=== PATIENT | female | born 1955 | race Caucasian/White ===

== ENCOUNTER 2016-04-26 12:50 | Emergency (ER) | payer BC ==
[2016-04-26 13:17] VITALS: BP 112/62
--- NOTE | 2016-04-26 13:44 | UC ---
Respiratory Complaint HPI - HPI Summary HPI Summary: PT HAS HAD MILD ST AND MALAISE FOR SEVERAL WEEKS. OVER PAST 5 DAYS HAS DEVELOPED WORSENING COUGH, CHEST CONGESTION, CHILLS, FATIGUE AND BODY ACHES. NO FEVER. DID GET A FLU SHOT. - History of Current Complaint Chief Complaint: UCRespiratory Stated Complaint: CHEST CONGEST, COUGH Time Seen by Provider: 04/26/16 13:33 Hx Obtained From: Patient Onset/Duration: Gradual Onset, Lasting Weeks, Still Present Timing: Constant Severity Initially: Moderate Severity Currently: Moderate Pain Intensity: 0 Pain Scale Used: 0-10 Numeric Character: Cough: Productive Aggravating Factors: Nothing Alleviating Factors: Nothing Associated Signs And Symptoms: Positive: Wheezing, URI, Nasal Congestion, Hoarseness. Negative: Dyspnea, Fever, Chills, Pleuritic Chest Pain, Hemoptysis , Dizziness, Calf Pain, Calf Swelling, Edema, Sinus Discomfort - Allergies/Home Medications Allergies/Adverse Reactions: Allergies Allergy/AdvReac Type Severity Reaction Status Date / Time Oxycodone [From Percocet] Allergy Hives Verified 01/27/16 14:51 Home Medications: Home Medications Escitalopram Oxalate [Lexapro] 20 mg PO DAILY 04/26/16 [History Confirmed ] Naproxen TAB* [Naprosyn TAB*] 500 mg PO Q8H PRN 04/26/16 [History Confirmed ] Triamterene/HCTZ 37.5-25 MG* [Dyazide CAP*] 04/26/16 [History] guaiFENesin ER TAB [Mucinex*] 1 tab PO BID PRN 04/26/16 [History Confirmed 04/26] PMH/Surg Hx/FS Hx/Imm Hx - Additional Past Medical History Additional PMH: MENIERES Endocrine History Of: Denies: Diabetes, Thyroid Disease Cardiovascular History Of: Denies: Cardiac Disorders, Hypertension Respiratory History Of: Denies: COPD, Asthma GI/ History Of: Denies: Ulcer Psychological History Of: Reports: Depression Cancer History Of: Denies: Breast Cancer - Surgical History Surgical History: None Surgery Procedure, Year, and Place: tubal reversal surgery - Family History Known Family History: Positive: Hypertension - Social History Alcohol Use: Rare Substance Use Type: None Smoking Status (MU): Never Smoked Tobacco Have You Smoked in the Last Year: No - Immunization History Hx Tetanus, Diphtheria Vaccination: Yes Vaccination Up to Date: Yes Review of Systems Constitutional: Fatigue ENT: Sore Throat, Ear Ache, Nasal Discharge Respiratory: Cough Cardiovascular: Negative Gastrointestinal: Negative Musculoskeletal: Myalgia All Other Systems Reviewed And Are Negative: Yes Physical Exam Triage Information Reviewed: Yes Appearance: Well-Appearing, No Pain Distress, Well-Nourished Vital Signs: Initial Vital Signs Temp 99.4 F 04/26/16 13:13 Pulse 68 04/26/16 13:13 Resp 18 04/26/16 13:13 BP 112/62 04/26/16 13:13 Pulse Ox 97 04/26/16 13:13 Vital Signs Reviewed: Yes Eyes: Positive: Conjunctiva Clear ENT: Positive: Hearing grossly normal, Pharynx normal, TMs normal Neck: Positive: Supple, Nontender, Enlarged Nodes @ - MILD SPFL CERVICAL LAD Respiratory Exam: Normal Cardiovascular Exam: Normal Abdomen Description: Positive: Soft Musculoskeletal: Positive: No Edema Neurological: Positive: Alert Psychological: Positive: Age Appropriate Behavior Skin: Negative: rashes UC Diagnostic Evaluation - Laboratory O2 Sat by Pulse Oximetry: 97 Respiratory Course/Dx - Differential Dx/Diagnosis Provider Diagnoses: ACUTE BRONCHITIS Discharge - Discharge Plan Condition: Stable Disposition: HOME Prescriptions: Azithromycin [Azithromycin 500 MG TAB] 500 mg PO DAILY #5 tab Patient Education Materials: Acute Bronchitis (ED) Forms: *Work Release Referrals: Brant Meyer MD [Primary Care Provider] - If Needed Additional Instructions: YOUR SYMPTOMS ARE LIKELY VIRAL IN ETIOLOGY AND SHOULD IMPROVE WITH TIME. IF YOU ARE NOT IMPROVING OVER THE NEXT SEVERAL DAYS GO AHEAD AND FILL RX FOR ANTIBIOTIC TO COVER FOR POSSIBLE BACTERIAL COMPONENT. REST, HYDRATE, OTC MEDS NEEDED FOR DISCOMFORT.
== END 2016-04-26 13:59 | disposition home or self-care (01) ==
LOC: UCEAST 12:50
DX: J20.9 Acute bronchitis, unspecified (principal); Z88.5 Allergy status to narcotic agent
CPT/HCPCS: 99212; G0463

== ENCOUNTER 2016-07-30 14:39 | Emergency (ER) | payer BC ==
[2016-07-30 15:10] VITALS: BP 121/63
--- NOTE | 2016-07-30 15:54 | RAD ---
INDICATION: Right rib pain COMPARISON: Rib series January 03, 2009 TECHNIQUE: Multiple views of the ribs were obtained. FINDINGS: Bones: There is no evidence of acute rib fracture. LUNGS: The lungs are clear. There is no pneumothorax. Pleural spaces: There is no evidence of hemothorax. Other: None IMPRESSION: NO ACUTE RIB FRACTURE.
[2016-07-30] MEDS ORDERED: Ketorolac INJ* 60 MG/2 ML VIAL IM ONE (16:04)
--- NOTE | 2016-07-30 16:17 | ED ---
Upper Extremity Pain - HPI Summary HPI Summary: 61F presents with right sided rib pain. She was mowing the lawn when the bar on the back hit a tree branch and it broke and hit her on the left side and pinned to her the seat on her right side. She states that her right ribs hurt immediately. She states it hurts to take a deep breath but she is not short of breath. She denies any neck or back. She has not taken anything for her pain and her pain is 10/10. It hurts worst when she doesn't sit up straight. - History of Current Complaint Chief Complaint: EDChestWallPain Stated Complaint: RT SIDE RIB PAIN/HIT W/FALLING TREE LIMB Time Seen by Provider: 07/30/16 15:23 - Allergies/Home Medications Allergies/Adverse Reactions: Allergies Allergy/AdvReac Type Severity Reaction Status Date / Time Oxycodone [From Percocet] Allergy Hives Verified 01/27/16 14:51 PMH/Surg Hx/FS Hx/Imm Hx Endocrine/Hematology History: Denies: Hx Diabetes, Hx Thyroid Disease Cardiovascular History: Denies: Hx Hypertension Respiratory History: Denies: Hx Asthma, Hx Chronic Obstructive Pulmonary Disease (COPD) GI History: Denies: Hx Ulcer Psychiatric History: Reports: Hx Depression - Cancer History Hx Chemotherapy: No Hx Radiation Therapy: No - Surgical History Surgery Procedure, Year, and Place: tubal reversal surgery Infectious Disease History: No Infectious Disease History: Denies: Hx Hepatitis, Hx Human Immunodeficiency Virus (HIV), Traveled Outside the [place] in Last 30 Days - Family History Known Family History: Positive: Unknown, Hypertension - Social History Alcohol Use: Rare Substance Use Type: Reports: None Smoking Status (MU): Never Smoked Tobacco Have You Smoked in the Last Year: No Review of Systems Negative: Fever Positive: Chest Pain - right side wall pain Negative: Shortness Of Breath, Cough All Other Systems Reviewed And Are Negative: Yes Physical Exam Triage Information Reviewed: Yes Vital Signs On Initial Exam: Initial Vitals Temp Pulse Resp BP Pulse Ox 97.7 F 54 16 121/63 100 07/30/16 15:04 07/30/16 15:04 07/30/16 15:04 07/30/16 15:04 07/30/16 15:04 Vital Signs Reviewed: Yes Appearance: Positive: Pain Distress Skin: Positive: Warm, Dry, Other - no ecchymosis Head/Face: Positive: Normal Head/Face Inspection Eyes: Positive: Normal, Conjunctiva Clear Respiratory/Lung Sounds: Positive: Clear to Auscultation, Breath Sounds Present , Other - no fail chest, tender over right lateral aspect of ribs, no step off felt Cardiovascular: Positive: Normal, RRR Abdomen Description: Positive: Nontender, Soft Diagnostics - Vital Signs Vital Signs Temp Pulse Resp BP Pulse Ox 07/30/16 15:20 97.7 F 54 16 121/63 100 07/30/16 15:04 97.7 F 54 16 121/63 100 - Laboratory Lab Statement: Any lab studies that have been ordered have been reviewed, and results considered in the medical decision making process. - Radiology ribs Xray Interpretation: No Acute Changes Radiology Interpretation Completed By: Radiologist Course/Dx - Course Course Of Treatment: 61F presents with right rib pain s/p getting pinned under a tree. She states she feels difficulty to breath due to pain but is not SOB. on exam chest wall rise symmetric, breath sounds equal, no step off. xray ribs normal. told to take deeps breath throughout the day. patient understands and agrees with plan - Diagnoses Differential Diagnosis/HQI/PQRI: Positive: Contusion, Fracture (Closed), Strain Provider Diagnoses: Rib pain on right side Discharge - Discharge Plan Condition: Stable Disposition: HOME Patient Education Materials: Rib Contusion (ED) Referrals: Brant Meyer MD [Primary Care Provider] - Additional Instructions: Take deep breath throughout the day Take Ibuprofen or Tylenol for pain every 6 hours Follow up with primary care physician within 5 days if no improvement Return to ED if develop new productive cough, fever, or any new or worsening symptoms
== END 2016-07-30 16:27 | disposition home or self-care (01) ==
LOC: ED 14:39
DX: R07.81 Pleurodynia (principal); R07.89 Other chest pain
CPT/HCPCS: 96372; 99282; J1885

== ENCOUNTER → 2018-01-10 10:19 | Emergency (ER) | payer BC, OTHER ==
[2018-01-10 10:44] VITALS: BP 120/61
--- NOTE | 2018-01-10 12:09 | ED ---
- HPI Summary HPI Summary: Patient is a 63-year-old female who presents emergency department for a needlestick injury. 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 Patient states today just prior to arrival she was giving a heparin injection to the patient. She states that subcutaneous needle and she gave the injection and when she was putting the safety on it slipped and poked her left index finger. Patient states she squeezed wound and quickly washed with soap and water. Patient has no past medical history immunizations are up-to-date. Patient believes that source patient does not have any concerning medical conditions. Symptoms are moderate in severity. No current modifying factors. - History of Current Complaint Chief Complaint: EDGeneral Stated Complaint: NEEDLE STICK Time Seen by Provider: 01/10/18 10:29 PMH/Surg Hx/FS Hx/Imm Hx Previously Healthy: Yes Endocrine/Hematology History: Denies: Hx Diabetes, Hx Thyroid Disease Cardiovascular History: Denies: Hx Hypertension Respiratory History: Denies: Hx Asthma, Hx Chronic Obstructive Pulmonary Disease (COPD) GI History: Denies: Hx Ulcer Psychiatric History: Reports: Hx Depression - Cancer History Hx Chemotherapy: No Hx Radiation Therapy: No - Surgical History Surgery Procedure, Year, and Place: tubal reversal surgery Infectious Disease History: No Infectious Disease History: Denies: Hx Hepatitis, Hx Human Immunodeficiency Virus (HIV), Traveled Outside the [place] in Last 30 Days - Family History Known Family History: Positive: Unknown, Hypertension - Social History Occupation: Employed Full-time Lives: With Family Alcohol Use: Rare Substance Use Type: Reports: None Smoking Status (MU): Never Smoked Tobacco Have You Smoked in the Last Year: No Review of Systems Positive: Other - needle stick All Other Systems Reviewed And Are Negative: Yes Physical Exam Triage Information Reviewed: Yes Vital Signs On Initial Exam: Initial Vitals Temp Pulse Resp BP Pulse Ox 98.1 F 64 20 120/61 98 01/10/18 10:40 01/10/18 10:40 01/10/18 10:40 01/10/18 10:40 01/10/18 10:40 Vital Signs Reviewed: Yes Appearance: Positive: Well-Appearing - Pt. sitting on bed in NAD. Skin: Positive: Warm, Dry, Other - Superifical abrasion noted to left distal index finger. Head/Face: Positive: Normal Head/Face Inspection Eyes: Positive: Normal, EOMI Neck: Positive: Supple Neurological: Positive: Normal, CN Intact II-III Psychiatric: Positive: Affect/Mood Appropriate Diagnostics - Vital Signs Vital Signs Temp Pulse Resp BP Pulse Ox 01/10/18 11:11 98.1 F 64 20 120/61 98 01/10/18 10:40 98.1 F 64 20 120/61 98 - Laboratory Lab Results: Lab Results 01/10/18 Range/Units 10:53 HIV 1&2 Antibody Rapid Nonreactive (Nonreactive) Lab Statement: Any lab studies that have been ordered have been reviewed, and results considered in the medical decision making process. Needlestick Course/Dx - Course Course Of Treatment: Patient presenting after being up with a used subcutaneous needle. Source pt. will have labs ordered by attending. Paper work and blood work obtained. Pt. declines prophylactic treatment. Suspect very low risk for transmission. She will follow-up with [facility]. - Diagnoses Provider Diagnoses: Needle stick injury of finger Discharge - Sign-Out/Discharge Documenting (check all that apply): Patient Departure - Discharge Plan Condition: Good Disposition: HOME Patient Education Materials: Needle Stick Injuries (ED) Referrals: [facility] th Clinic,[facility] [Z.BUSINESS, APPLICATION, OTHER] - Brant Meyer MD [Primary Care Provider] - Additional Instructions: Follow up with [facility] for testing results - Billing Disposition and Condition Condition: GOOD Disposition: Home
== END | disposition home or self-care (01) ==
LOC: ED 10:19
DX: S61.231A Puncture wound without foreign body of left index finger without damage to nail, initial encounter (principal); W46.1XXA Contact with contaminated hypodermic needle, initial encounter; Y93.F9 Activity, other caregiving; Y92.230 Patient room in hospital as the place of occurrence of the external cause; Y99.0 Civilian activity done for income or pay
CPT/HCPCS: 36415; 86703; 86706; 86803; 87340; 99281